=== PATIENT | male | born 1970 | race Caucasian/White ===

== ENCOUNTER 2016-06-19 06:38 | Day surgery (SDC) | payer MEDICARE, MEDICAID ==
[2016-06-19] VITALS (8 sets, daily range): BP systolic 125–149; BP diastolic 71–95; PULSE 74–96; RESP 13–16; O2SAT 91–99
[~2016-06-19] VITALS: Ht 170.2 cm; Wt 86.5 kg
[~2016-06-19 06:38] MED LIST: BACI120O TP; CeFAZolin 2 Gm/50 mL D5W IV Premix IV ONE; FENO145T19 PO; Gentamicin 80 mg/50 mL D5W IV ONE; NITR100 PO; RANI150C4 PO; TAMS0.4C98 PO
[2016-06-19] MEDS ORDERED: fentaNYL-PF 50 mCg/mL 2 mL Inj ONE (06:39)
[2016-06-19] MEDS ORDERED: Ondansetron 2 mg/mL 2 mL Inj ONE (06:39)
[2016-06-19] MEDS ORDERED: Propofol 10,000 mCg/mL 20 mL Inj ONE (06:39)
[2016-06-19] MEDS ORDERED: MetoCLOpramide 5 mg/mL 2 mL Inj ONE (06:39)
[2016-06-19] MEDS ORDERED: Dexamethasone 4 mg/mL Inj ONE (06:39)
[2016-06-19] MEDS ORDERED: AMOX875T2 PO (07:27)
[2016-06-19] MEDS: Lactated Ringer's 1,000 ML IV SCH ×2 (07:51→08:20)
[2016-06-19] MEDS ORDERED: Belladonna Alk-Opium 60 mg Rectal Suppository RECTAL ONE (08:36)
--- NOTE | 2016-06-19 08:36 | PCM.HPANE ---
Patient Data Date of Service: Jun 19, 2016 (0800) Surgeon Admitting Provider: Attending Provider:Viktoriya Mg MD Primary Care Physician:Everton Clark DO Other Provider:Juan Palencia Anesthesia Reason for Visit Meatal Stenosis Ht/WT & BMI Height (Feet): 5 Height (Inches): 7 Weight (Kilograms): 86.500 Body Mass Index 29.00 Allergies Coded Allergies: No Known Allergies (Verified Allergy, Unknown, 06/17/16) Diabetes History Hx Diabetes?: No MRSA MRSA: No Medications Home Meds Incl Beta Karmen: No Reported Medications Amoxicillin 875 Mg [id number] Mg PO BID Ref 0 06/19/16 Nitrofurantoin Monohyd/M-Cryst (MacroBid)100 Mg [id number] Mg PO BID Ref 0 06/17/16 Fenofibrate Nanocrystallized (Fenofibrate)145 Mg [id number] Mg PO DAILY Ref 0 06/17/16 Ranitidine 150 Mg [id number] Mg PO BID Ref 0 06/17/16 Bacitracin Zinc (Bacitracin Zinc Ointment)120 Gm Oint...g.1 Applic TP PRN PRN For Laceration #1 TUBE Ref 0 06/17/16 Discontinued Reported Medications Tamsulosin (Flomax)0.4 Mg Capsule0.4 Mg PO DAILY Ref 0 06/17/16 History History of ENT Problems?: No Hx of Heart Problems?: No Hx of Respiratory Problem?: No Hx Neurologic Problems?: No Hx of GI Problems?: Yes Gastrointestinal History: Positive for:: Gastroesphageal Reflux Hx of Problems?: Yes Genitourinary History: Positive for:: Urinary Tract Infection Male Hx: Denies:: Prostate Problems Scrotal Mass Testicular Surgery Skin History: Denies:: History Skin Disorders? Pressure Ulcers Hx Musculoskeletal Problems?: No Hx of Psycho/Social Problems?: Yes (AUTISTIC, DEVELOPMENTALLY DELAYED) Psycho Social History: Positive for:: Anxiety Hx Surgeries?: No Hx Any Other Health Problems?: Yes Other History: Denies:: Hospitalization Thyroid Disease Hx Diabetes: No Hx Alcohol Use: NoHx Substance Use: No Stop/Bang S-Snoring: Do You Snore Loudly: No T-Tired: feel tired, fatigued: No O-Obsered: Observed not breath: No P-Blood Pressure: treated: No B- Body Mass Index > 35 kg/m2: No A- Age over 50: No N- Neck Large Circumference: No G- Gender Male: Yes LINH Total Score: 1 Risk Assessment Category Category 1A: Patient has history of documented sleep apnea, and HAS NOT received any narcotic, sedative or anesthesia administration during this stay. Category 1B: Patient has history of documented sleep apnea, and HAS received any narcotic , sedative or anesthesia administration during this stay Category 2: Patient has SUSPECTED Obstructive Sleep Apnea, and HAS received any narcotic , sedative or anesthesia administration during this stay. Category 3: Patient has SUSPECTED Obstructive Sleep Apnea and HAS NOT received narcotic, sedative or anesthesia administration during this stay. Category 4: Outpatient in Procedural Areas with known sleep apnea or who screen positive for High Risk via the STOP/BANG questionnaire. Exam Exam Vital Signs Vital Signs Date Time Temp Pulse Resp B/P Pulse Ox O2 Delivery O2 Flow Rate FiO2 06/19/16 07:34 36.5 85 16 133/80 97 Room Air General Appearance: Alert, Cooperative, No Acute Distress, Other ( developmentally delayed) HEENT/AIRWAY: MP 2 Lungs: Clear to Auscultation, Normal Air Movement Heart: Exam Unremarkable, Regular Rate/Rhythm, No Murmurs/Rubs/Gallops Meds/Labs/Diagnostics Admission Meds Current Medications Lactated Ringer's (Lr) 1,000 ml @ 120 mls/hr Q8H20M IV Last administered on t 07:51; Start 06/19/16 at 05:00; Stop 06/19/16 at 13:19 Plan Impression Patient chart reviewed, patient interviewed and anesthestic plan with risks, benefits, and alternatives discussed, and informed consent obtained. NPO Status: 06/18/15 AT 2100 ASA Physical Status: ASA2 Mod Systemic Disease Anesthetic Plan: GA Bene/Risks/Altern/Consents: Yes HP Complete Prior to Induction: Yes Dariel Lopez MD Jun 19, 2016 08:36
[2016-06-19] MEDS ORDERED: Lactated Ringer's 1,000 ML IV SCH (08:39)
[2016-06-19] MEDS ORDERED: Lactated Ringer's 500 ML IV PRN (08:39)
[2016-06-19] MEDS ORDERED: MetoCLOpramide 5 mg/mL 2 mL Inj IVPUSH PRN (08:40)
[2016-06-19] MEDS ORDERED: Phenylephrine 10,000 mCg/mL Inj IVPUSH PRN (08:40)
[2016-06-19] MEDS ORDERED: Ondansetron 2 mg/mL 2 mL Inj IVPUSH PRN (08:40)
[2016-06-19] MEDS ORDERED: EPHEDrine Sulfate 50 mg/mL Inj IVPUSH PRN (08:40)
[2016-06-19] MEDS ORDERED: Atropine 0.4 mg/mL Inj IVPUSH PRN (08:40)
[2016-06-19] MEDS ORDERED: Labetalol 5 mg/mL 4 mL Inj IV PRN (08:40)
[2016-06-19] MEDS ORDERED: fentaNYL-PF 50 mCg/mL 2 mL Inj IVPUSH PRN (08:40)
[2016-06-19] MEDS ORDERED: hydrALAZINE 20 mg/mL Inj IVPUSH PRN (08:40)
[2016-06-19] MEDS ORDERED: Bupivacaine-MPF 0.5% 30 mL Inj INFILTRATE ONE (08:43)
[2016-06-19] MEDS ORDERED: Bacitracin Ointment Packet TOPICAL ONE (08:47)
[2016-06-19] MEDS ORDERED: Triamcinolone Acet 40 mg/mL 1 mL Inj IM ONE (08:54)
[2016-06-19] MEDS ORDERED: Ondansetron 8 mg ODT Tablet PO PRN (09:30)
[2016-06-19] MEDS ORDERED: HYDROcodone-APAP 5-325 mg Tablet PO PRN (09:30)
--- NOTE | 2016-06-19 10:08 | PCM.ANEP1 ---
Post Anesthesia Phase 1 PACU Phase 1 Assessment Date of Service: Jun 19, 2016 (0800) Vital Signs Vital Signs Date Time Temp Pulse Resp B/P Pulse Ox O2 Delivery O2 Flow Rate FiO2 06/19/16 10:05 96 14 132/95 91 Room Air 06/19/16 09:30 74 13 130/71 98 Simple Mask 8 06/19/16 09:26 36.5 80 13 129/83 99 Simple Mask 8 06/19/16 07:34 36.5 85 16 133/80 97 Room Air Anesthetic Administered: GA Level of Alertness: Awake, talking ALEJANDRA's with Equal Strength: Yes Pain: No Nausea or Vomiting: No Oxygen Delivery: Simple Mask Lungs: Clear to Auscultation, Normal Air Movement Dermatome Level: Full Sensation Dariel Lopez MD Jun 19, 2016 10:08
--- NOTE | 2016-06-19 10:08 | PCM.ANEP2 ---
Post Anesthesia Evaluation ASA/CMS Post Anesthesia VS in Patient's Normal Range?: Yes Resp Stable; Airway Patent?: Yes CV Function & Hydration Stable: Yes Mental Status Recovered?: Yes Pain control Satisfactory?: Yes N/V Control Satisfactory?: Yes Dariel Lopez MD Jun 19, 2016 10:08
[2016-06-20] MEDS ORDERED: Gentamicin 80 mg/50 mL D5W IV ONE ×2 (06:00)
--- NOTE | 2016-06-20 13:22 | PATH ---
SURGICAL PATHOLOGY Attending Physician:Viktoriya Mg MD CASE STATUS: Signed Out PATIENT NAME: SANDRA MOHAMUD PID: [id number] : 1970 DATE COLLECTED:06/19/2016 16:22 SPECIMEN: Bladder, Biopsy CLINICAL HISTORY: A: BLADDER ERYTHEMA FINAL DIAGNOSIS: 1.BLADDER, ERYTHEMA, BIOPSY: CHRONIC ACTIVE CYSTITIS. NO EVIDENCE OF NEOPLASIA. ICD10 CODE N30.90 GROSS DESCRIPTION: The specimen is received in one formalin filled container labeled with the patient's name, sublabeled "bladder erythema" and consists of a 0.3 x 0.2 x 0.2 CM portion of tissue which is entirely submitted in one cassette. 06/19/2016 DAC MICRO DESCRIPTION: See diagnosis. ICD-9 CODES: CPT CODES: 1: 43834 Electronically Signed Out Rosalia Kelley MD [facility], [place] [address] Technical component performed at [facility], [address] [place] [address] Ave[address], [place], [address]
--- NOTE | 2016-06-20 13:37 | OP ---
[address] [address] OPERATIVE REPORT PATIENT: SANDRA MOHAMUD : 1970 MR#: [id number] ADMIT: 06/19/2016 JOB ID: [id number] DATE OF SURGERY: 06/19/2016 PROCEDURE NAME: 1. Meatotomy. 2. Cystourethroscopy. 3. Kenalog injection into penis. 4. Gentamicin installation into the patient's bladder. 5. Bladder biopsy 0.5cm size SURGEON: Viktoriya Mg MD. ANESTHESIA: General. PREOPERATIVE DIAGNOSIS(ES): 1. Meatal stenosis, severe, with balanitis xerotica obliterans. 2. History of urinary tract infections. 3. Developmental delay. POSTOPERATIVE DIAGNOSIS(ES): 1. Meatal stenosis, severe, with balanitis xerotica obliterans. 2. History of urinary tract infections. 3. Developmental delay. 4. Bladder erythema. INDICATIONS: The patient is a 45-year-old gentleman with developmental delay, autism spectrum. Initially referred to Urology for problems with urinary tract infections. Found to be in urinary retention with meatal stenosis. Unable to perform cystoscopy in clinic. Set up for formal meatotomy and cystoscopy, delayed by issues surrounding the patient's responsible power of estate planning attorney person that should be available for counseling and consents given the patient's mental status. Ultimately set up for June 19, 2016. PROCEDURE IN DETAIL: After appropriate informed consent was obtained, signed by power of estate planning attorney, the patient was brought to the operating room. SCD were placed. Adequate general anesthesia induced. He was carefully placed into the dorsal lithotomy position. All pressure points were carefully padded. Visual inspection revealed once again a pinpoint meatal stenosis, quite severe, with some BXO changes to the glans. We started off by advancing a wire to ensure this appeared to go into the patient's bladder which it did. We then performed formal meatotomy using bilateral hemostats to clamp the tissue and then cutting down, ultimately cutting through all of the thickened bad tissue to the coronal sulcus inferiorly. This opened up the meatus enough to advance the scope into. The tissue was clamped and then we oversewed with 3-0 chromic. Hemostasis was quite good. There was less than normal amount of bleeding given the altered nature of the tissue with the BXO changes. There was nothing of concern to send for biopsy in this region. Once the meatotomy was complete and hemostasis was adequate, we proceeded with cystoscopy. A 22-Khmer sheath was advanced into the patient's bladder, which was surveyed and found to be uniformly very erythematous. He had had a preop positive urine culture and been put on culture-specific antibiotics. With the suspicion that this was related to his chronic urinary infections, we took only one medical billing representative biopsy area, as it was medical billing representative of essentially the entire bladder. We noted his bladder to be moderately trabeculated with overlying erythema throughout. Cold cup biopsy was taken, less than 5 cm in size, of a medical billing representative area. This was cauterized with a Bugbee electrode to get good hemostasis. We then instilled into the patient's bladder 80 mg of gentamicin and 250 of saline as culture-specific antibiotic in addition to his IV specific culture-directed antibiotics, which were gentamicin and Ancef, as well as his preop Augmentin at home. The catheter was replaced and clamps to hold this in, allowing a dwell time of 1 hour prior to releasing it. We also injected 40 of Kenalog into the ventral portion of his urethra where the BXO changes were advancing to try to stay this off. The patient tolerated the procedure well and was finished with an 18-Khmer Kemp catheter, clamped with the gentamicin solution inside. Plan was to bring him back to the one-day surgery area and remove the clamp in 1 hour. The patient tolerated the procedure well and was returned to the postanesthesia care unit. ANA MARÍA
== END 2016-06-19 23:59 | disposition home or self-care (01) ==
LOC: SAS 06:38
PROVIDERS: ATTEND Urology
DX: N35.9 Urethral stricture, unspecified (principal); N39.44 Nocturnal enuresis; N48.0 Leukoplakia of penis; N30.20 Other chronic cystitis without hematuria; L53.8 Other specified erythematous conditions; F41.9 Anxiety disorder, unspecified; K21.9 Gastro-esophageal reflux disease without esophagitis; F84.0 Autistic disorder; R62.50 Unspecified lack of expected normal physiological development in childhood; Z87.440 Personal history of urinary (tract) infections
CPT/HCPCS: 52281; 88305; J0690; J1100; J2250; J2405; J2765; J3301; J7120